=== PATIENT | female | born 1995 | race Caucasian/White ===

== ENCOUNTER → 2016-09-30 | Outpatient (CLI) | payer BC ==
[2016-09-30 08:50] LABS: Appearance,Urine Clear (Clear); Bilirubin,Urine Negative (Negative); Glucose,Urine (UA) Negative (Negative); Ketones,Urine Negative (Negative); Leukocyte Esterase,Urine Negative (Negative); Nitrite,Urine Negative (Negative); PH, Urine 7.5 (5.0-8.0); Protein,Urine Negative (Negative); Specific Gravity,Urine 1.006 (1.001-1.035); UA Billing (MACRO vs. MICRO) CHEM; Urobilinogen,Urine <2.0 mg/dL (<2.0)
== END | disposition home or self-care (01) ==
LOC: LABWHC1 08:21
PROVIDERS: ATTEND Internal Medicine
DX: M54.5 Low back pain (principal)
CPT/HCPCS: 81003; 87086

== ENCOUNTER → 2016-11-25 | Outpatient (CLI) | payer BC | END | disposition home or self-care (01) | LOC: LABWHC1 07:24 | PROVIDERS: ATTEND Clinical Nurse Specialist Women's Health | DX: D64.9 Anemia, unspecified (principal); E03.9 Hypothyroidism, unspecified | CPT/HCPCS: 36415; 81291; 84481 ==

== ENCOUNTER → 2016-12-30 | Outpatient (CLI) | payer BC | END | disposition home or self-care (01) | LOC: LABWHC1 11:22 | PROVIDERS: ATTEND Clinical Nurse Specialist Women's Health | DX: E72.12 Methylenetetrahydrofolate reductase deficiency (principal) | CPT/HCPCS: 36415; 81291; 82746; 83090; 84207 ==

== ENCOUNTER → 2017-02-03 | Outpatient (CLI) | payer BC ==
[2017-02-03 13:48] LABS: Appearance,Urine Clear (Clear); Bilirubin,Urine Negative (Negative); Glucose,Urine (UA) Negative (Negative); Ketones,Urine Negative (Negative); Leukocyte Esterase,Urine Negative (Negative); Nitrite,Urine Negative (Negative); PH, Urine 6.5 (5.0-8.0); Protein,Urine Negative (Negative); Specific Gravity,Urine 1.003 (1.001-1.035); UA Billing (MACRO vs. MICRO) CHEM; Urobilinogen,Urine <2.0 mg/dL (<2.0)
== END | disposition home or self-care (01) ==
LOC: LABWHC1 12:39
PROVIDERS: ATTEND Internal Medicine
DX: N39.0 Urinary tract infection, site not specified (principal)
CPT/HCPCS: 81003; 87086

== ENCOUNTER → 2017-05-02 | Outpatient (CLI) | payer BC | END | disposition home or self-care (01) | LOC: LABWHC1 07:06 | PROVIDERS: ATTEND Clinical Nurse Specialist Women's Health | DX: E03.9 Hypothyroidism, unspecified (principal) | CPT/HCPCS: 36415; 84439; 84443; 84481 ==

== ENCOUNTER → 2017-09-30 | Outpatient (CLI) | payer BC ==
[2017-09-30 07:39] LABS: Basophils % (A) 1 %; Eosinophils # (A) 0.1 k/uL (0-0.7); Eosinophils % (A) 2 %; HCT 44.6 % (34.0-46.0); HGB 14.8 gm/dL (11.4-16.0); Lymphocytes # (A) 1.9 k/uL (1.0-4.8); Lymphocytes % (A) 32 %; MCHC 33.2 g/dL (31.0-37.0); MCV 93.4 fL (80.0-100.0); Mean Platelet Volume 7.6; Monocytes # (A) 0.4 k/uL (0-1.0); Monocytes % (A) 7 %; Neutrophils # (A) 3.4 k/uL (1.3-7.7); Neutrophils % (A) 57 %; Platelet Count 243 k/uL (150-450); RBC 4.77 m/uL (3.80-5.40); WBC 5.9 k/uL (3.8-10.6)
[2017-09-30 10:01] LABS: ALT 38 U/L (9-52); AST 25 U/L (14-36); Albumin 4.2 g/dL (3.5-5.0); Alkaline Phosphatase 68 U/L (38-126); Anion Gap 10 mmol/L; Blood Urea Nitrogen 29 mg/dL (7-17); Calcium 9.8 mg/dL (8.4-10.2); Carbon Dioxide 27 mmol/L (22-30); Chloride 103 mmol/L (98-107); Glucose 79 mg/dL (74-99); Potassium 4.6 mmol/L (3.5-5.1); Sodium 140 mmol/L (137-145); Total Bilirubin 0.4 mg/dL (0.2-1.3); Total Protein 6.9 g/dL (6.3-8.2)
[2017-09-30 10:06] LABS: T4, Free (Free Thyroxine) 1.52 ng/dL (0.78-2.19)
[2017-09-30 11:09] LABS: Erythrocyte Sedimentation Rate 7 mm/hr (0-20)
== END | disposition home or self-care (01) ==
LOC: LABWHC1 06:56
PROVIDERS: ATTEND Internal Medicine
DX: E03.9 Hypothyroidism, unspecified (principal); R53.83 Other fatigue
CPT/HCPCS: 36415; 80053; 82306; 84439; 84443; 84481; 85025; 85652

== ENCOUNTER → 2017-10-18 | Outpatient (CLI) | payer BC ==
--- NOTE | 2017-10-18 14:07 | US ---
EXAMINATION TYPE: US abdomen complete DATE OF EXAM: 10/18/2017 COMPARISON: NONE CLINICAL HISTORY: R10.84 Abdominal Pain. ABd pain for 2 weeks EXAM MEASUREMENTS: Liver Length: 13.3 cm Gallbladder Wall: 0.3 cm CBD: 0.4 cm Spleen: 8.5 cm Right Kidney: 9.9 x 4.2 x 5.2 cm Left Kidney: 10.1 x 4.5 x 5.4 cm Pancreas: The pancreas is slightly heterogenous in echogenicity and slightly hypoechoic, which could be related to low-grade uncomplicated pancreatitis is no peripancreatic fluid collection is seen. Liver: wnl Gallbladder: The gallbladder is elongated measuring 6.7 x 3.1 cm. Gallbladder wall thickening is upp er limits of normal measuring 3 mm. Common bile duct is within normal limits measuring 4 mm. Evidence for sonographic Mtz's sign: no CBD: wnl Spleen: wnl Right Kidney: wnl Left Kidney: wnl Upper IVC: wnl Abd Aorta: wnl The liver is homogenous. The intrahepatic portion of the IVC and proximal abdominal aorta are within normal limits. There is no evidence of cholelithiasis. Common bile duct is unremarkable. The sple en is unremarkable. Kidneys are symmetric and free of hydronephrosis. No renal lesions are seen. IMPRESSION: 1. Elongated gallbladder with no evidence of cholelithiasis or common bile duct enlargement. This co uld relate to biliary dyskinesia and HIDA scan with CCK could be performed to for further evaluation of clinically indicated. 2. Slight heterogeneity of the pancreatic parenchyma. Correlate with serum amylase and lipase to excl ude resolving uncomplicated pancreatitis. 3. No evidence of nephrolithiasis or hydronephrosis. No abdominal aortic aneurysm. No sonographic al dence of hepatocellular disease or hepatic steatosis.
== END | disposition home or self-care (01) ==
LOC: RADUSWWP 08:18
PROVIDERS: ATTEND Internal Medicine
DX: K82.8 Other specified diseases of gallbladder (principal); R10.84 Generalized abdominal pain
CPT/HCPCS: 76700

== ENCOUNTER → 2018-07-04 | Outpatient (CLI) | payer BC ==
[2018-07-04 07:20] LABS: Basophils # (A) 0.1 k/uL (0-0.2); Basophils % (A) 1 %; Eosinophils # (A) 0.1 k/uL (0-0.7); Eosinophils % (A) 2 %; HGB 14.7 gm/dL (11.4-16.0); Lymphocytes # (A) 1.3 k/uL (1.0-4.8); Lymphocytes % (A) 28 %; MCH 31.6 pg (25.0-35.0); MCHC 32.8 g/dL (31.0-37.0); MCV 96.6 fL (80.0-100.0); Mean Platelet Volume 7.6; Monocytes # (A) 0.3 k/uL (0-1.0); Monocytes % (A) 6 %; Neutrophils # (A) 2.8 k/uL (1.3-7.7); Neutrophils % (A) 61 %; Platelet Count 196 k/uL (150-450); RBC 4.66 m/uL (3.80-5.40); RDW 12.3 % (11.5-15.5); WBC 4.7 k/uL (3.8-10.6)
[2018-07-04 16:26] LABS: C Reactive Protein <0.4 mg/dL (0.0-0.8)
== END ==
LOC: LABWHC1 06:35
PROVIDERS: ATTEND Chiropractor
DX: E03.9 Hypothyroidism, unspecified (principal); R53.83 Other fatigue
CPT/HCPCS: 36415; 82565; 84439; 84443; 84481; 84520; 85025; 86140

== ENCOUNTER → 2018-09-01 | Outpatient (CLI) | payer BC ==
--- NOTE | 2018-09-01 16:15 | US ---
EXAMINATION TYPE: US pelvic complete DATE OF EXAM: 09/01/2018 COMPARISON: NONE CLINICAL HISTORY: N83.29 Ovarian cysts, N91.5 Oligomenorrhea. Oligomenorrhea, history of ovarian cyst s TECHNIQUE: Transabdominal (TA). Date of LMP: 3 years ago EXAM MEASUREMENTS: Uterus: 8.4 x 3.2 x 4.1 cm Endometrial Stripe: 0.5 cm Right Ovary: 3.6 x 1.6 x 2.6 cm Left Ovary: 3.7 x 2.0 x 1.6 cm 1. Uterus: Anteverted wnl 2. Endometrium: wnl 3. Right Ovary: follicles noted 4. Left Ovary: follicles noted 5. Bilateral Adnexa: appears wnl 6. Posterior cul-de-sac: wnl Urinary bladder is sonolucent. Posterior wall is unremarkable. IMPRESSION: 1. Normal pelvic ultrasound
== END | disposition home or self-care (01) ==
LOC: RADUSWWP 14:49
PROVIDERS: ATTEND Obstetrics & Gynecology
DX: N91.5 Oligomenorrhea, unspecified (principal)
CPT/HCPCS: 76856

== ENCOUNTER → 2018-09-06 | Outpatient (CLI) | payer BC ==
[2018-09-06 12:12] LABS: ALT 26 U/L (8-44); AST 21 U/L (13-35); Cholesterol 131 mg/dL (0-200); Triglycerides <50.0 mg/dL (0.0-149.0); VLDL Calculation 9.98 mg/dL (5.00-40.00)
[2018-09-06 12:15] LABS: DHEA Sulfate 299.8 ug/dL (26.0-430.0); Vitamin D 25 Hydroxy 93.6 ng/mL (30.0-100.0)
[2018-09-06 12:22] LABS: Folate, Serum 21.2 ng/mL
[2018-09-06 12:48] LABS: HCG,Quantitative Serum <2.0 mIU/mL; Progesterone 0.4 ng/mL; Thyroid Peroxidase Antibodies <28.0 U/mL (0.0-60.0)
[2018-09-08 19:46] LABS: Zinc, RBC 9.4 mg/L (9.0-14.7)
[2018-09-09 18:46] LABS: Testosterone, Free, LC/MS/MS 1.4 pg/mL (0.2-5.0); Testosterone, Total, LC/MS/MS 30 ng/dL (2-45)
[2018-09-12 22:37] LABS: Dihydrotestosterone <5 ng/dL (5-46); Pregnenolone 189 ng/dL (22-237)
== END | disposition home or self-care (01) ==
LOC: LABWHC1 06:35
PROVIDERS: ATTEND Obstetrics & Gynecology
DX: N83.201 Unspecified ovarian cyst, right side (principal); N91.5 Oligomenorrhea, unspecified; N94.3 Premenstrual tension syndrome; E72.12 Methylenetetrahydrofolate reductase deficiency; E03.9 Hypothyroidism, unspecified; R53.83 Other fatigue; N94.10 Unspecified dyspareunia
CPT/HCPCS: 36415; 80061; 80327; 82040; 82306; 82565; 82607; 82627; 82670; 82746; 83001; 83002; 83090; 83735; 84140; 84144; 84146; 84270; 84403; 84439; 84443; 84450; 84460; 84481; 84482; 84630; 84702; 86376

== ENCOUNTER 2018-12-29 15:19 | Observation (INO) | payer BC ==
[2018-12-29 16:13] LABS: Basophils % (A) 0 %; Eosinophils # (A) 0.2 k/uL (0-0.7); Eosinophils % (A) 3 %; HCT 45.3 % (34.0-46.0); HGB 14.7 gm/dL (11.4-16.0); Lymphocytes # (A) 2.5 k/uL (1.0-4.8); Lymphocytes % (A) 26 %; MCH 30.5 pg (25.0-35.0); MCHC 32.4 g/dL (31.0-37.0); MCV 94.1 fL (80.0-100.0); Mean Platelet Volume 8.5; Monocytes # (A) 0.6 k/uL (0-1.0); Monocytes % (A) 6 %; Neutrophils # (A) 6.2 k/uL (1.3-7.7); Neutrophils % (A) 64 %; Platelet Count 210 k/uL (150-450); RBC 4.81 m/uL (3.80-5.40); RDW 13.3 % (11.5-15.5); WBC 9.8 k/uL (3.8-10.6)
[2018-12-29 16:21] LABS: ALT 21 U/L (9-52); AST 24 U/L (14-36); Albumin 4.7 g/dL (3.5-5.0); Alkaline Phosphatase 80 U/L (38-126); Anion Gap 7 mmol/L; Blood Urea Nitrogen 18 mg/dL (7-17); Calcium 9.9 mg/dL (8.4-10.2); Carbon Dioxide 27 mmol/L (22-30); Chloride 105 mmol/L (98-107); Glucose 100 mg/dL (74-99); Potassium 3.8 mmol/L (3.5-5.1); Sodium 139 mmol/L (137-145); Total Bilirubin 0.3 mg/dL (0.2-1.3); Total Protein 7.5 g/dL (6.3-8.2)
[2018-12-29] MEDS: SODIUM CHLORIDE 0.9% 500 ML 500 ML IV SCH ×3 (16:27→17:07)
[2018-12-29] MEDS ORDERED: cefTRIAXone IN SWFI 1,000 MG/10 ML SYRINGE IVP STA (16:29)
[2018-12-29 16:36] LABS: INR 0.9 (<1.2); Prothrombin Time 9.7 sec (9.0-12.0)
[2018-12-29 16:37] LABS: Partial Thromboplastin Time 19.6 sec (22.0-30.0)
[2018-12-29 16:40] LABS: Appearance,Urine Clear (Clear); Bilirubin,Urine Negative (Negative); Blood,Urine Negative (Negative); Color,Urine Yellow; Glucose,Urine (UA) Negative (Negative); Ketones,Urine Negative (Negative); Leukocyte Esterase,Urine Negative (Negative); Nitrite,Urine Negative (Negative); PH, Urine 6.5 (5.0-8.0); Protein,Urine Negative (Negative); Specific Gravity,Urine 1.008 (1.001-1.035); Urobilinogen,Urine <2.0 mg/dL (<2.0)
[2018-12-29] MEDS ORDERED: CLINDAMYCIN 600 MG in DEXTROSE 5% IN WATER 50 ML IVPB STA ×2 (17:50)
[2018-12-29] MEDS ORDERED: NALOXONE 0.4 MG/ML 1 ML VIAL IV PRN (19:21)
--- NOTE | 2018-12-29 19:21 | ED ---
General Adult HPI - General Chief complaint: Extremity Problem,Nontraumatic Stated complaint: Post op complications Time Seen by Provider: 12/29/18 15:38 Source: family, RN notes reviewed Mode of arrival: ambulatory Limitations: no limitations - History of Present Illness Initial comments: 23-year-old female presents to the emergency department for a chief complaint of possible infection to the right axilla. Patient states that she had a lymph node excised approximately 4 days ago because it was calcified by Dr. serna. States that the next day she did have redness spreading down her arm. States that today it is down to her elbow. Patient states she feels like she has had fevers on and off as well. Patient states she did speak with her primary care physician as well as Dr. serna's office who recommended that she come to the emergency department. Patient has no other complaints at this time including shortness of breath, chest pain, abdominal pain, nausea or vomiting, headache, or visual changes. - Related Data Home Medications Medication Instructions Recorded Confirmed Thyroid,Pork [Sugar Mill Worker Thyroid] 30 mg PO DAILY 12/29/18 12/29/18 Thyroid,Pork [Sugar Mill Worker Thyroid] 180 mg PO DAILY 12/29/18 12/29/18 Allergies Allergy/AdvReac Type Severity Reaction Status Date / Time amoxicillin Allergy Rash/Hives Verified 12/29/18 16:45 Penicillins Allergy Rash/Hives Verified 12/29/18 16:45 Review of Systems ROS Statement: Those systems with pertinent positive or pertinent negative responses have been documented in the HPI. ROS Other: All systems not noted in ROS Statement are negative. Past Medical History Additional Past Medical History / Comment(s): enlarged lymph node History of Any Multi-Drug Resistant Organisms: None Reported Additional Past Surgical History / Comment(s): biopsy lymph node Past Psychological History: No Psychological Hx Reported Smoking Status: Never smoker Past Alcohol Use History: None Reported Past Drug Use History: None Reported General Exam Limitations: no limitations General appearance: alert, in no apparent distress Head exam: Present: atraumatic, normocephalic, normal inspection Eye exam: Present: normal appearance, PERRL, EOMI. Absent: scleral icterus, conjunctival injection, periorbital swelling ENT exam: Present: normal exam, mucous membranes moist Neck exam: Present: normal inspection, full ROM. Absent: tenderness, meningismus, lymphadenopathy Respiratory exam: Present: normal lung sounds bilaterally. Absent: respiratory distress, wheezes, rales, rhonchi, stridor Cardiovascular Exam: Present: regular rate, normal rhythm, normal heart sounds. Absent: systolic murmur, diastolic murmur, rubs, gallop, clicks Extremities exam: Present: tenderness, normal capillary refill (Capillary refill is 2 seconds radial pulse 2+ in the right upper extremity), other (Patient appears to have a recent negative for similar induration noted to the right axilla with erythema extending from her axilla to the medial aspect of right elbow. No streaking redness. ) Neurological exam: Present: alert, oriented X3, CN II-XII intact Psychiatric exam: Present: normal affect, normal mood Course Vital Signs 12/29/18 12/29/18 15:30 17:07 Temperature 98.3 F 98.1 F Pulse Rate 89 80 Respiratory 16 16 Rate Blood Pressure 126/79 111/75 O2 Sat by Pulse 99 99 Oximetry Medical Decision Making - Medical Decision Making 23-year-old female presents to the emergency determine for a chief complaint of possible right axillary infection. Patient states that she had a lymph nodes excised proximally 4 days ago and since then has had some spreading redness. Patient did have a fever yesterday. On exam patient does have an induration noted of the right axilla about 3 x 4 cm. There does appear to be cellulitic infection exam and from the axilla to the right elbow on the medial aspect of the right arm. Wound culture sent. Contacted Dr. serna who did come and evaluate patient in the emergency department, recommends IV clindamycin as patient does have a penicillin ALLERGY. We will admit for observation and IV antibiotics. - Lab Data Result diagrams: 12/29/18 15:59 12/29/18 15:59 Lab Results 12/29/18 12/29/18 12/29/18 Range/Units 15:59 15:59 15:59 WBC 9.8 (3.8-10.6) k/uL RBC 4.81 (3.80-5.40) m/uL Hgb 14.7 (11.4-16.0) gm/dL Hct 45.3 (34.0-46.0) % MCV 94.1 (80.0-100.0) fL MCH 30.5 (25.0-35.0) pg MCHC 32.4 (31.0-37.0) g/dL RDW 13.3 (11.5-15.5) % Plt Count 210 (150-450) k/uL Neutrophils % 64 % Lymphocytes % 26 % Monocytes % 6 % Eosinophils % 3 % Basophils % 0 % Neutrophils # 6.2 (1.3-7.7) k/uL Lymphocytes # 2.5 (1.0-4.8) k/uL Monocytes # 0.6 (0-1.0) k/uL Eosinophils # 0.2 (0-0.7) k/uL Basophils # 0.0 (0-0.2) k/uL PT (9.0-12.0) sec INR (<1.2) APTT (22.0-30.0) sec Sodium 139 (137-145) mmol/L Potassium 3.8 (3.5-5.1) mmol/L Chloride 105 (98-107) mmol/L Carbon Dioxide 27 (22-30) mmol/L Anion Gap 7 mmol/L BUN 18 H (7-17) mg/dL Creatinine 0.67 (0.52-1.04) mg/dL Est GFR (CKD-EPI)AfAm >90 (>60 ml/min/1.73 sqM) Est GFR (CKD-EPI)NonAf >90 (>60 ml/min/1.73 sqM) Glucose 100 H (74-99) mg/dL Plasma Lactic Acid Vic 0.9 (0.7-2.0) mmol/L Calcium 9.9 (8.4-10.2) mg/dL Total Bilirubin 0.3 (0.2-1.3) mg/dL AST 24 (14-36) U/L ALT 21 (9-52) U/L Alkaline Phosphatase 80 (38-126) U/L Total Protein 7.5 (6.3-8.2) g/dL Albumin 4.7 (3.5-5.0) g/dL Urine Color Urine Appearance (Clear) Urine pH (5.0-8.0) Ur Specific [place] (1.001-1.035) Urine Protein (Negative) Urine Glucose (UA) (Negative) Urine Ketones (Negative) Urine Blood (Negative) Urine Nitrite (Negative) Urine Bilirubin (Negative) Urine Urobilinogen (<2.0) mg/dL Ur Leukocyte Esterase (Negative) Urine HCG, Qual (Not Detectd) 12/29/18 12/29/18 12/29/18 Range/Units 15:59 16:30 16:30 WBC (3.8-10.6) k/uL RBC (3.80-5.40) m/uL Hgb (11.4-16.0) gm/dL Hct (34.0-46.0) % MCV (80.0-100.0) fL MCH (25.0-35.0) pg MCHC (31.0-37.0) g/dL RDW (11.5-15.5) % Plt Count (150-450) k/uL Neutrophils % % Lymphocytes % % Monocytes % % Eosinophils % % Basophils % % Neutrophils # (1.3-7.7) k/uL Lymphocytes # (1.0-4.8) k/uL Monocytes # (0-1.0) k/uL Eosinophils # (0-0.7) k/uL Basophils # (0-0.2) k/uL PT 9.7 (9.0-12.0) sec INR 0.9 (<1.2) APTT 19.6 L (22.0-30.0) sec Sodium (137-145) mmol/L Potassium (3.5-5.1) mmol/L Chloride (98-107) mmol/L Carbon Dioxide (22-30) mmol/L Anion Gap mmol/L BUN (7-17) mg/dL Creatinine (0.52-1.04) mg/dL Est GFR (CKD-EPI)AfAm (>60 ml/min/1.73 sqM) Est GFR (CKD-EPI)NonAf (>60 ml/min/1.73 sqM) Glucose (74-99) mg/dL Plasma Lactic Acid Vic (0.7-2.0) mmol/L Calcium (8.4-10.2) mg/dL Total Bilirubin (0.2-1.3) mg/dL AST (14-36) U/L ALT (9-52) U/L Alkaline Phosphatase (38-126) U/L Total Protein (6.3-8.2) g/dL Albumin (3.5-5.0) g/dL Urine Color Yellow Urine Appearance Clear (Clear) Urine pH 6.5 (5.0-8.0) Ur Specific [place] 1.008 (1.001-1.035) Urine Protein Negative (Negative) Urine Glucose (UA) Negative (Negative) Urine Ketones Negative (Negative) Urine Blood Negative (Negative) Urine Nitrite Negative (Negative) Urine Bilirubin Negative (Negative) Urine Urobilinogen <2.0 (<2.0) mg/dL Ur Leukocyte Esterase Negative (Negative) Urine HCG, Qual Not Detected (Not Detectd) Disposition Clinical Impression: Cellulitis of axilla, right Disposition: ADMITTED IP TO THIS HOSP Condition: Fair Is patient prescribed a controlled substance at d/c from ED?: No Referrals: Jamari Matos MD [Primary Care Provider] - 1-2 days Time of Disposition: 19:21
[2018-12-29] MEDS: HYDROcodone/APAP 5-325MG 1 EACH TAB PO PRN (19:58)
[2018-12-29] MEDS: SODIUM CHLORIDE 0.9% 1,000 ML IV SCH (20:04)
[2018-12-29 21:12] VITALS: BMI 24.2
[2018-12-29] MEDS: IBUPROFEN 400 MG TAB PO PRN (23:26)
[2018-12-30] MEDS: CLINDAMYCIN 600 MG in DEXTROSE 5% IN WATER 50 ML IVPB SCH ×8 (01:09→23:54)
[2018-12-30] MEDS: HYDROcodone/APAP 5-325MG 1 EACH TAB PO PRN (02:05)
[2018-12-30] MEDS: SODIUM CHLORIDE 0.9% 1,000 ML IV SCH ×3 (05:27→22:03)
[2018-12-30] MEDS: ONDANSETRON 4 MG/2 ML VIAL IVP PRN (06:30)
[2018-12-30 06:33] LABS: Glucose,Whole Blood 81 mg/dL (75-99)
--- NOTE | 2018-12-30 11:03 | P.GSHP ---
History of Present Illness H&P Date: 12/29/18 This is a 23-year-old female who presented to the emergency room well known to my service underwent right axillary lymph node excisional biopsy on 12/26/2018 she states that she's had increased pain and swelling in her right arm and axilla along with erythema and induration. No drainage. The wound was opened in the emergency room there is small amount of purulent drainage was noted with serosanguineous drainage. She had a subjective fever at home. She has no other complaints Past Medical History Additional Past Medical History / Comment(s): enlarged lymph node, ciliac disease History of Any Multi-Drug Resistant Organisms: None Reported Additional Past Surgical History / Comment(s): biopsy lymph node Past Anesthesia/Blood Transfusion Reactions: Postoperative Nausea & Vomiting (PONV) Past Psychological History: No Psychological Hx Reported Smoking Status: Never smoker Past Alcohol Use History: None Reported Past Drug Use History: None Reported - Past Family History Mother Family Medical History: No Reported History Father Family Medical History: Cancer Additional Family Medical History / Comment(s): Heart disease, colon and adrenal cancer Medications and Allergies Home Medications Medication Instructions Recorded Confirmed Type Thyroid,Pork [Pipeline Inspector Thyroid] 30 mg PO DAILY 12/29/18 12/29/18 History Thyroid,Pork [Pipeline Inspector Thyroid] 180 mg PO DAILY 12/29/18 12/29/18 History Allergies Allergy/AdvReac Type Severity Reaction Status Date / Time amoxicillin Allergy Rash/Hives Verified 12/29/18 16:45 Penicillins Allergy Rash/Hives Verified 12/29/18 16:45 Surgical - Exam Osteopathic Statement: *. No significant issues noted on an osteopathic structural exam other than those noted in the History and Physical/Consult. Vital Signs Temp Pulse Resp BP Pulse Ox 98.3 F 89 16 126/79 99 12/29/18 15:30 12/29/18 15:30 12/29/18 15:30 12/29/18 15:30 12/29/18 15:30 - General well developed, well nourished, no distress - Eyes PERRL - Neck no masses - Respiratory normal expansion, normal respiratory effort - Cardiovascular Rhythm: regular - Abdomen Abdomen: soft, non tender - Integumentary Induration and erythema extending distally on her right upper extremity. Small area of fluctuance near the incision at the right axilla. - Neurologic normal coordination, normal sensation - Psychiatric oriented to time, oriented to person, oriented to place Results - Labs 12/29/18 15:59 12/29/18 15:59 Abnormal Lab Results - Last 24 Hours (Table) 12/29/18 05 Range/Units 15:59 15:59 APTT 19.6 L (22.0-30.0) sec BUN 18 H (7-17) mg/dL Glucose 100 H (74-99) mg/dL Microbiology - Last 24 Hours (Table) 12/29/18 19:44 Gram Stain - Preliminary Axilla - Right Wound Culture - Preliminary Diabetes panel 12/29/18 Range/Units 15:59 Sodium 139 (137-145) mmol/L Potassium 3.8 (3.5-5.1) mmol/L Chloride 105 (98-107) mmol/L Carbon Dioxide 27 (22-30) mmol/L BUN 18 H (7-17) mg/dL Creatinine 0.67 (0.52-1.04) mg/dL Glucose 100 H (74-99) mg/dL Calcium 9.9 (8.4-10.2) mg/dL AST 24 (14-36) U/L ALT 21 (9-52) U/L Alkaline Phosphatase 80 (38-126) U/L Total Protein 7.5 (6.3-8.2) g/dL Albumin 4.7 (3.5-5.0) g/dL Calcium panel 12/29/18 Range/Units 15:59 Calcium 9.9 (8.4-10.2) mg/dL Albumin 4.7 (3.5-5.0) g/dL Pituitary panel 12/29/18 Range/Units 15:59 Sodium 139 (137-145) mmol/L Potassium 3.8 (3.5-5.1) mmol/L Chloride 105 (98-107) mmol/L Carbon Dioxide 27 (22-30) mmol/L BUN 18 H (7-17) mg/dL Creatinine 0.67 (0.52-1.04) mg/dL Glucose 100 H (74-99) mg/dL Calcium 9.9 (8.4-10.2) mg/dL Adrenal panel 12/29/18 Range/Units 15:59 Sodium 139 (137-145) mmol/L Potassium 3.8 (3.5-5.1) mmol/L Chloride 105 (98-107) mmol/L Carbon Dioxide 27 (22-30) mmol/L BUN 18 H (7-17) mg/dL Creatinine 0.67 (0.52-1.04) mg/dL Glucose 100 H (74-99) mg/dL Calcium 9.9 (8.4-10.2) mg/dL Total Bilirubin 0.3 (0.2-1.3) mg/dL AST 24 (14-36) U/L ALT 21 (9-52) U/L Alkaline Phosphatase 80 (38-126) U/L Total Protein 7.5 (6.3-8.2) g/dL Albumin 4.7 (3.5-5.0) g/dL Assessment and Plan Assessment: Cellulitis right upper extremity Plan: I discussed with the patient opening the wound and the emergency room the wound was opened along the previous incision site approximately 2 cm in serosanguineous drainage with a small amount of purulent drainage was noted. There was no other loculations or purulent drainage. Patient tolerated this well. She'll be started on IV clindamycin and admitted for observation. Patient was agreeable with this plan.
--- NOTE | 2018-12-30 11:05 | P.PN ---
Subjective Progress Note Date: 12/30/18 Patient's pain is significantly improved her vital signs are stable and afebrile overnight. The area of swelling and induration and erythema is improved. Minimal amount of serosanguineous drainage Objective - Vital Signs Vital signs: Vital Signs Temp 98 F 12/30/18 07:00 Pulse 74 12/30/18 08:00 Resp 18 12/30/18 08:00 BP 97/62 12/30/18 08:00 Pulse Ox 100 12/30/18 08:00 Intake & Output 12/29/18 12/30/18 12/30/18 18:59 06:59 18:59 Weight 57.153 kg Other: # Voids 1 # Emeses 1 - Constitutional General appearance: Present: cooperative - Respiratory Details: Nonlabored - Cardiovascular Rhythm: regular - Integumentary Integumentary Comment(s): Right upper extremity induration and erythema improved. Minimal amount of serosanguineous drainage - Psychiatric Psychiatric: Present: A&O x's 3 - Labs CBC & Chem 7: 12/29/18 15:59 12/29/18 15:59 Labs: Abnormal Lab Results - Last 24 Hours (Table) 12/29/18 12/29/18 Range/Units 15:59 15:59 APTT 19.6 L (22.0-30.0) sec BUN 18 H (7-17) mg/dL Glucose 100 H (74-99) mg/dL Microbiology - Last 24 Hours (Table) 12/29/18 19:44 Gram Stain - Preliminary Axilla - Right Wound Culture - Preliminary Assessment and Plan Assessment: Cellulitis right upper extremity Plan: Patient to continue clindamycin dressing changes as needed. Discussed with the patient being discharged home on oral antibiotics which could possibly be later today or tomorrow. Patient was agreeable comfortable with this plan.
[2018-12-30] MEDS ORDERED: ACETAMINOPHEN TAB 325 MG TAB PO PRN (11:28)
[2018-12-30] MEDS ORDERED: SODIUM CHLORIDE 0.9% 500 ML 500 ML IV SCH (19:30)
[2018-12-31] MEDS: ONDANSETRON 4 MG/2 ML VIAL IVP PRN (06:15)
[2018-12-31 06:24] VITALS: RESP 18
[2018-12-31] MEDS ORDERED: MD COMMUNICATION TO PHARMACY 1 EACH MISC PO PRN (06:39)
[2018-12-31] MEDS: IBUPROFEN 400 MG TAB PO PRN (06:45)
[2018-12-31] MEDS: CLINDAMYCIN 600 MG in DEXTROSE 5% IN WATER 50 ML IVPB SCH ×2 (08:18)
[2018-12-31] MEDS ORDERED: NP THYROID 30 MG PO SCH (09:00)
[2018-12-31] MEDS ORDERED: NP THYROID 90 MG PO SCH (09:00)
[2018-12-31 09:01] VITALS: BP 92/57; PULSE 51; TEMP 97.5
== END 2018-12-31 11:49 | disposition home or self-care (01) ==
LOC: EC 15:19 → 6PED 20:31
PROVIDERS: ADMIT Student in an Organized Health Care Education/Training Program; ATTEND Student in an Organized Health Care Education/Training Program
DX: T81.49XA Infection following a procedure, other surgical site, initial encounter (principal); L03.111 Cellulitis of right axilla; L03.113 Cellulitis of right upper limb; Z79.890 Hormone replacement therapy; Z88.0 Allergy status to penicillin; Z82.49 Family history of ischemic heart disease and other diseases of the circulatory system; Z80.0 Family history of malignant neoplasm of digestive organs; Z80.51 Family history of malignant neoplasm of kidney
CPT/HCPCS: 96361 ×3; 96366 ×2; 96375; 96376; 96365; 99284; 10060; 36415; 80053; 83605; 85025; 85610; 85730; 81003; 81025; 87040; 87070; 87205; 87077; 87186; G0378 ×3; J2405 ×2

== ENCOUNTER → 2019-03-12 | Outpatient (CLI) | payer BC ==
--- NOTE | 2019-03-12 13:22 | US ---
EXAMINATION TYPE: US axilla RT DATE OF EXAM: 03/12/2019 COMPARISON: NONE CLINICAL HISTORY: R59.0 lymphadenopathy. Patient states she had surgery in her right axilla in January 01 to remove "calcifications" near lymph nodes due to inflamed lymph nodes. Pain in her right axilla, fever x1 day last week. Complex area with mobile debris and peripheral hypervascularity visualized measuring 3.8 x 1.0 x 3.8 cm at the area of the patient's scar. Findings are noted at the level of patient's prior surgery. IMPRESSION: Findings felt likely to represent local abscess or phlegmon.
== END | disposition home or self-care (01) ==
LOC: RADUSWWP 12:53
PROVIDERS: ATTEND Student in an Organized Health Care Education/Training Program
DX: R59.0 Localized enlarged lymph nodes (principal)

== ENCOUNTER → 2019-05-29 | Outpatient (CLI) | payer BC ==
--- NOTE | 2019-05-29 16:10 | US ---
EXAMINATION TYPE: US axilla RT DATE OF EXAM: 05/29/2019 COMPARISON: Right axillary ultrasound dated 03/12/2019 CLINICAL HISTORY: [id number] LYMPHADEN YESIKA. Patient had calcifications removed near lymph nodes in right axilla, at area of scar patient keeps having flare ups of pain and palpables TECHNIQUE/FINDINGS: Targeted ultrasound was performed of the right axilla, lateral to the scar. Evy hilary and color imaging were utilized. 2 hypoechoic areas seen under scar with increased vascularity. These measure up to 1.[address] dimension on the prior exam was 3.8 cm. There is some surrounding peripheral vascular flow. At site of palpable, lateral to scar is 1.0cm normal appearing lymph node with fatty hilum IMPRESSION: At the site of the previously seen abscess on the exam of 03/12/2019 there are 2 small re sidual abscess is seen now measuring up 1.3 cm and previously measuring up to 3.8 cm.
== END | disposition home or self-care (01) ==
LOC: RADUSWWP 14:07
PROVIDERS: ATTEND Student in an Organized Health Care Education/Training Program
DX: L02.411 Cutaneous abscess of right axilla (principal)

== ENCOUNTER → 2019-06-07 | Outpatient (CLI) | payer BC ==
--- NOTE | 2019-06-07 10:26 | CT ---
EXAMINATION TYPE: CT neck chest w con DATE OF EXAM: 06/07/2019 COMPARISON: None HISTORY: Generalized enlarged lymph nodes CT DLP: 802 mGycm CONTRAST: Patient injected with 100 mL of Isovue 300. TECHNIQUE: Axial images at 3 mm thick sections. Reconstructed images in the coronal plane and sagitt al plane are reviewed. FINDINGS: Limited CT sections are obtained the lung apices. The lung apices appear clear. CT neck: The torus tubarius and fossa of Rosenmuller are normal. [place] spaces are normal. Para nasal sinuses and mastoid air cells are clear. Parotid glands appear normal and symmetrical. Submandibular glands, are normal. Parapharyngeal spac es are normal. No suspicious adenopathy is evident. The hypopharynx appears within normal limits. Vocal cord level appear symmetrical. Thyroid as visualized is normal. Osseous structures are normal. There are few scattered small posterior triangle lymph nodes. IMPRESSIONS: 1. CT neck appears within normal limits. Significant enlarged adenopathy is not identified. EXAMINATION TYPE: CT neck chest w con DATE OF EXAM: 06/07/2019 COMPARISON: None HISTORY: Generalized enlarged lymph nodes CT DLP: 802 mGycm, Automated exposure control for dose reduction was used. CONTRAST: Performed injected with 100 mL of Isovue 300. TECHNIQUE: Axial images were obtained at 5 mm thick sections. Reconstructed images are reviewed on [employer] computer in the coronal plane. FINDINGS: Portion of the thyroid visualized is normal. No suspicious lung nodules or focal infiltrates are present. No enlarged mediastinal or hilar adenopathy is evident. There are scattered small lymph nodes withi n the axillary regions bilaterally. Thymus is visualized appears normal The ascending aorta diameter at the level of the main pulmonary artery is 2.7 cm. The main pulmonary artery diameter at the bifurcation is 2.[address] sections are obtained through the upper abdomen. Abdomen is essentially unremarkable. IMPRESSIONS: 1. Normal Chest CT. 2. No suspicious enlarged adenopathy.
== END | disposition home or self-care (01) ==
LOC: RADCTMAIN 06:40
PROVIDERS: ATTEND Student in an Organized Health Care Education/Training Program
DX: R59.1 Generalized enlarged lymph nodes (principal)
CPT/HCPCS: 70491; 71260; Q9967

== ENCOUNTER → 2019-10-18 | Outpatient (CLI) | payer BC ==
[2019-10-18 16:27] LABS: African American GFR (CKD) 146.8 (60.0-200.0); BUN/Creat Ratio 23.33 Ratio (12.00-20.00); Calcium 9.3 mg/dL (8.7-10.3); Carbon Dioxide 27.4 mmol/L (21.6-31.8); Chloride 110 mmol/L (96-109); Glucose 96 mg/dL (70-110); Iron 85 ug/dL (50-170); Non-African American GFR(CKD) 126.7 (60.0-200.0); Potassium 4.3 mmol/L (3.5-5.5); Sodium 143 mmol/L (135-145)
== END | disposition home or self-care (01) ==
LOC: LABWHC1 06:36
PROVIDERS: ATTEND Nurse Practitioner Adult Health
DX: E03.9 Hypothyroidism, unspecified (principal)
CPT/HCPCS: 36415; 80048; 82306; 82607; 83540; 84439; 84443

== ENCOUNTER → 2021-04-08 | Outpatient (CLI) | payer SELFPAY ==
[2021-04-08 15:43] LABS: HCT 42.1 % (37.2-46.3); HGB 13.7 g/dL (12.0-15.0); MCH 31.6 pg (27.0-32.0); MCHC 32.5 g/dL (32.0-37.0); MCV 97.2 fL (80.0-97.0); Mean Platelet Volume 10.9 fL (9.5-12.2); Platelet Count 243 X 10*3/uL (140-440); RBC 4.33 X 10*6/uL (4.10-5.20); RDW 12.5 % (11.5-14.5); WBC 5.35 X 10*3/uL (4.50-10.00)
== END | disposition home or self-care (01) ==
LOC: LABWHC1 08:41
PROVIDERS: ATTEND Chiropractor
DX: E03.9 Hypothyroidism, unspecified (principal); E07.9 Disorder of thyroid, unspecified
CPT/HCPCS: 36415; 84439; 84443; 84481; 85027